=== PATIENT | male | born 1990 | race Hispanic/Latino ===

== ENCOUNTER 2016-12-16 15:08 | Emergency (ER) | payer MEDICAID ==
[2016-12-16 15:08] VITALS: BMI 26.6
[2016-12-16 15:18] VITALS: RESP 18; TEMP 98.4
[2016-12-16] MEDS ORDERED: Lidocaine 2% Inj (20ml) ONE (15:26)
--- NOTE | 2016-12-16 15:58 | RAD ---
PROCEDURE: Left Index finger radiographs. HISTORY: r/o fx COMPARISON: None. TECHNIQUE: AP radiograph of the left hand, as well as spot oblique and lateral images of index finger were obtained. FINDINGS: LEFT INDEX FINGER: There is dorsal dislocation of the of middle phalanx with respect to the proximal phalanx 2nd digit. . In addition, there is a very tiny elliptical shaped bony density along the dorsal articular surface of the middle phalanx that may represent tiny chip fracture. Surrounding soft tissue swelling JOINTS: As above SOFT TISSUES: As above OTHER FINDINGS: No radiopaque foreign bodies IMPRESSION: There is dorsal dislocation of the of middle phalanx with respect to the proximal phalanx 2nd digit. . In addition, there is a very tiny elliptical shaped bony density along the dorsal articular surface of the middle phalanx that may represent tiny chip fracture. Surrounding soft tissue swelling. Note that this report was placed in PA review folder for followup
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
[2016-12-16 16:28] VITALS: BP 128/85; PULSE 85; O2SAT 97
--- NOTE | 2016-12-16 17:11 | RAD ---
PROCEDURE: Left Index finger radiographs. HISTORY: post-reduction COMPARISON: None. TECHNIQUE: AP radiograph of the left hand, as well as spot oblique and lateral images of index finger were obtained. FINDINGS: LEFT INDEX FINGER: There has been interval reduction previously noted dorsally dislocated middle phalanx 2nd digit. Suspected tiny chip fracture the was seen adjacent to dorsal articular surface of the middle phalanx is not visualized on this exam. Mild surrounding soft tissue swelling. No other abnormalities. . JOINTS: As above. SOFT TISSUES: Normal. OTHER FINDINGS: None. IMPRESSION: There has been interval reduction previously noted dorsally dislocated middle phalanx 2nd digit. Suspected tiny chip fracture the was seen adjacent to dorsal articular surface of the middle phalanx is not visualized on this exam. Mild surrounding soft tissue swelling. No other abnormalities. . Of note this report was placed in PA review folder for followup.
== END 2016-12-16 16:30 | disposition home or self-care (01) ==
LOC: C.ER 15:08
DX: S63.271A Dislocation of unspecified interphalangeal joint of left index finger, initial encounter (principal); W23.0XXA Caught, crushed, jammed, or pinched between moving objects, initial encounter; Y93.89 Activity, other specified; Y92.89 Other specified places as the place of occurrence of the external cause; F19.10 Other psychoactive substance abuse, uncomplicated

== ENCOUNTER 2016-12-31 09:31 | Emergency (ER) | payer MEDICAID ==
[2016-12-31 09:36] VITALS: BMI 28.1
--- NOTE | 2016-12-31 10:19 | RAD ---
PROCEDURE: Radiographs of the Right Forearm HISTORY: pain COMPARISON: None available. TECHNIQUE: Frontal and lateral views obtained. FINDINGS: BONES: No fracture or destructive lesion. JOINT SPACES: Unremarkable. OTHER FINDINGS: None. IMPRESSION: Unremarkable radiographs of the right forearm.
--- NOTE | 2016-12-31 10:27 | RAD ---
PROCEDURE: Radiographs of the Chest and Left Ribs. HISTORY: pain COMPARISON: Comparison made with chest and right rib series dated 09/01/2015 TECHNIQUE: Frontal radiograph of the chest and multiple oblique radiographs of the left ribs were obtained. FINDINGS: LEFT RIBS: No fracture or focal lesion visualized. LUNGS: Clear. PLEURA: No pneumothorax or pleural fluid. CARDIOVASCULAR: Normal sized heart. No pulmonary vascular congestion. OTHER FINDINGS: None. IMPRESSION: Unremarkable radiographs of the chest and left ribs. No left rib fracture.
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
[2016-12-31 11:14] VITALS: BP 125/76; PULSE 82; RESP 18; TEMP 98.2
--- NOTE | 2016-12-31 12:59 | CARD ---
APPROVED REPORT EKG Measurement Heart [id number] ID [id number] <Conclusion> Low atrial rhythm Early repolarization Otherwise normal ECG
[2016-12-31 16:15] VITALS: O2SAT 96
== END 2016-12-31 11:17 | disposition home or self-care (01) ==
LOC: C.ER 09:31
DX: R07.89 Other chest pain (principal); M79.631 Pain in right forearm

== ENCOUNTER 2017-01-29 02:57 | Emergency (ER) | payer MEDICAID ==
[2017-01-29 02:57] VITALS: BMI 23.7
[2017-01-29 03:07] VITALS: O2SAT 98
--- NOTE | 2017-01-29 04:14 | C.PDOC ---
History Of Present Illness 26 y/o male presents to ED requesting medication refill. Patient is requesting Seroquel refill and states he has not taken medication "in a long time". No physical complaints at this time. Time Seen by Provider: 01/29/17 03:14 Chief Complaint (Nursing): Med Refill History Per: Patient History/Exam Limitations: no limitations Onset/Duration Of Symptoms: Days Current Symptoms Are (Timing): Still Present Past Medical History Reviewed: Historical Data, Nursing Documentation, Vital Signs Vital Signs: Last Vital Signs Temp 98.2 F 01/29/17 04:30 Pulse 75 01/29/17 04:30 Resp 20 01/29/17 04:30 BP 132/74 01/29/17 04:30 Pulse Ox 98 01/29/17 04:53 - Medical History PMH: Bipolar Disorder, Depression Surgical History: No Surg Hx - [facility] Procedures CLOSURE SKIN & SUBCUTANEOUS NEC (11/18/13) PSYCHIA INTERV/EVAL NEC (09/25/13) TETANUS TOXOID ADMINIST (11/18/13) Family History: States: No Known Family Hx - Social History Hx Tobacco Use: Yes Hx Alcohol Use: Yes (unknown) Hx Substance Use: Yes (unknown) - Immunization History Hx Tetanus Toxoid Vaccination: Yes (2015) Hx Influenza Vaccination: No Hx Pneumococcal Vaccination: No Review Of Systems Constitutional: Negative for: Fever, Chills Cardiovascular: Negative for: Chest Pain Respiratory: Negative for: Shortness of Breath Gastrointestinal: Negative for: Nausea, Vomiting Skin: Negative for: Rash Physical Exam - Physical Exam Appears: Non-toxic, No Acute Distress Skin: Warm, Dry, No Rash Head: Atraumatic, Normacephalic Eye(s): bilateral: Normal Inspection, PERRL, EOMI Oral Mucosa: Moist Throat: No Erythema, No Exudate Neck: Normal ROM, Supple Chest: Symmetrical, No Tenderness Cardiovascular: Rhythm Regular, No Friction Rub, No Murmur Respiratory: Normal Breath Sounds, No Rales, No Rhonchi, No Wheezing Gastrointestinal/Abdominal: Soft, No Tenderness, No Guarding, No Rebound Back: Normal Inspection, No CVA Tenderness Extremity: Normal ROM, No Swelling Neurological/Psych: Oriented x3, Normal Speech, Normal Motor, Normal Sensation Gait: Steady ED Course And Treatment O2 Sat by Pulse Oximetry: 98 (RA) Pulse Ox Interpretation: Normal Medical Decision Making Medical Decision Making: Patient discharged and given prescription for 1 tablet of Seroquel Patient states he will follow up with [facility] for medication refill. Disposition - Disposition Referrals: [facility] [Outside] Disposition: HOME/ ROUTINE Disposition Time: 04:12 Condition: GOOD Additional Instructions: Follow up with the medical doctor within 1-2 days. Return if worsened. Prescriptions: Quetiapine Fumarate [Seroquel] 25 mg PO DAILY #1 tablet Instructions: Medicine Refill (ED) Forms: [employer] (Kinyarwanda) - Clinical Impression Clinical Impression: Review of medication - PA / IRRIGATOR HEAD / Resident Statement MD/DO has reviewed & agrees with the documentation as recorded. - Scribe Statement The provider has reviewed the documentation as recorded by the Jojoibcristhian Brandon All medical record entries made by the Jojoibcristhian were at my direction and personally dictated by me. I have reviewed the chart and agree that the record accurately reflects my personal performance of the history, physical exam, medical decision making, and the department course for this patient. I have also personally directed, reviewed, and agree with the discharge instructions and disposition.
[2017-01-29 04:59] VITALS: BP 132/74; PULSE 75; RESP 20; TEMP 98.2
== END 2017-01-29 04:59 | disposition home or self-care (01) ==
LOC: C.ER 02:57
DX: Z76.0 Encounter for issue of repeat prescription (principal)

== ENCOUNTER 2017-02-05 00:26 | Emergency (ER) | payer MEDICAID ==
[2017-02-05 00:27] VITALS: BMI 23.7
[2017-02-05 00:45] VITALS: RESP 16; O2SAT 98
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
[2017-02-05 06:15] VITALS: BP 132/81; PULSE 97; TEMP 98.4
== END 2017-02-05 06:15 | disposition home or self-care (01) ==
LOC: C.ER 00:26
DX: S60.511A Abrasion of right hand, initial encounter (principal); S09.92XA Unspecified injury of nose, initial encounter; Y08.89XA Assault by other specified means, initial encounter; Y92.89 Other specified places as the place of occurrence of the external cause